=== PATIENT | female | born 1960 | race Caucasian/White ===

== ENCOUNTER 2016-07-07 18:43 | Emergency (ER) | payer BC ==
[~2016-07-07] VITALS: Ht 162.6 cm; Wt 65.5 kg
[~2016-07-07 18:43] MED LIST: AMBI5TAB PO; AUGM875T PO; IBUP-232 PO; PERC7.5T13 PO; SOMA350T PO; VALI10TA PO; VIST25CA PO
[2016-07-07 18:45] VITALS: BP 181/80; PULSE 83; RESP 14; TEMP 97.8; O2SAT 94
[2016-07-07] MEDS ORDERED: HYDR-3580 PO (19:31)
[2016-07-07] MEDS ORDERED: SOMA350T PO (19:31)
[2016-07-07] MEDS ORDERED: AMBI10TA PO (19:32)
[2016-07-07] MEDS ORDERED: ASPIRIN 325 MG TAB PO ONE (19:45)
[2016-07-07] MEDS ORDERED: NITROGLYCERIN 0.4 MG SL 25 TABS/BTL SL ONE (19:45)
[2016-07-07 19:53] VITALS: BP 160/85; PULSE 87; RESP 16; O2SAT 96
[2016-07-07 19:53] LABS: AUTOMATED NEUTROPHIL # 6.4 TH/MM3 (1.8-7.7); BASOPHIL # 0.1 TH/MM3 (0-0.2); BASOPHIL % 1.2 % (0.0-2.0); EOSINOPHIL # 0.3 TH/MM3 (0-0.4); EOSINOPHIL % 2.8 % (0.0-4.0); HEMO FLAGS DIFF FINAL; LYMPH % 35.3 % (9.0-44.0); LYMPHOCYTE # 4.1 TH/MM3 (1.0-4.8); MEAN CELL VOLUME 88.7 FL (80.0-100.0); MEAN CORPUSCULAR HEMOGLOBIN 29.4 PG (27.0-34.0); MEAN CORPUSCULAR HGB CONC 33.2 % (32.0-36.0); MONO % 5.6 % (0.0-8.0); NEUT % 55.1 % (16.0-70.0); PLATELET COUNT 337 TH/MM3 (150-450); RED CELL DISTRIBUTION WIDTH 12.8 % (11.6-17.2); WHITE BLOOD COUNT 11.6 TH/MM3 (4.0-11.0)
--- NOTE | 2016-07-07 19:56 | PD ---
HPI Chief Complaint: Abnormal Results Time Seen by Provider: 19:25 Travel History International Travel<30 days: No Contact w/Intl Traveler<30days: No Traveled to known affect area: No History of Present Illness HPI The patient is 55 years old. She arrives from her primary care provider's office, Dr. Gomez, after an EKG was performed which demonstrates Q waves in V1 through V3 and in lead III. she has had chest pain for about 1 week or so. It is primarily in the region of the left infracostal margin. Pleuritic chest pain is present. An occasional cough is reported, nonproductive and without fever. Quality is soreness. Overall the pain is mild at rest. She has no family history of coronary artery disease. She quit smoking tobacco 2 years prior. She's also had pain in the region of the left eye for about 2 days. The onset was gradual. She reports some pain with range of motion and when eye is shut. No visual change. No diplopia. Outside provider considered other process to be preseptal in nature. PFSH Past Medical History Diminished Hearing: No Musculoskeletal: Yes (back spasms) Tetanus Vaccination: Unknown ?: Not Menopausal: Yes Past Surgical History Gynecologic Surgery: Yes (ENDOMETRIAL ABLATION) Tonsillectomy: Yes Social History Alcohol Use: Yes (4 TIMES PER WEEK) Tobacco Use: No Substance Use: No Allergies-Medications (Allergen,Severity, Reaction): Coded Allergies: Egg Allergy (Verified Allergy, Mild, "ITCH", 07/07/16) Vancomycin (Verified Allergy, Mild, ITCHING, 07/07/16) Reported Meds & Prescriptions Reported Meds & Active Scripts Active Aspirin 81 Mg Tabdr 81 Mg PO DAILY 30 Days Reported Ambien (Zolpidem Tartrate) 10 Mg Tab 10 Mg PO HS PRN Soma (Carisoprodol) 350 Mg Tab 350 Mg PO QID PRN Hydrocodone-Acetaminophen 7.5-325 mg Tab 1 Tab PO Q6H PRN Review of Systems Except as stated in HPI: all other systems reviewed are Neg General / Constitutional: No: Fever Cardiovascular: Positive: Chest Pain or Discomfort, No: Palpitations, Tachycardia, Diaphoresis Respiratory: Positive: Pleuritic Pain Physical Exam Narrative GENERAL: 55-year-old female pleasant and speaking full sentences well-nourished well-developed no acute distress SKIN: Warm and dry. HEAD: Atraumatic. Normocephalic. EYES: Pupils equal and round. No scleral icterus. Minimal swelling around the left lower eyelid associated with tenderness and a trace amount of erythema. ROM intact. No diplopia. No proptosis. No chalazion or hordeolum. ENT: No nasal bleeding or discharge. Mucous membranes pink and moist. NECK: Trachea midline. No JVD. CARDIOVASCULAR: Regular rate and rhythm. No murmur appreciated. Minimal TTP L inferior costal margin. No overlying skin change. RESPIRATORY: No accessory muscle use. Clear to auscultation. Breath sounds equal bilaterally. GASTROINTESTINAL: Abdomen soft, non-tender, nondistended. Hepatic and splenic margins not palpable. MUSCULOSKELETAL: No obvious deformities. No clubbing. No cyanosis. No edema. NEUROLOGICAL: Awake and alert. No obvious cranial nerve deficits. Motor grossly within normal limits. Normal speech. PSYCHIATRIC: Appropriate mood and affect; insight and judgment normal. Data Data Last Documented VS Vital Signs Date Time Temp Pulse Resp B/P Pulse Ox O2 Delivery O2 Flow Rate FiO2 07/07/16 19:53 87 16 160/85 96 Room Air 07/07/16 18:45 97.8 VS noted Orders Electrocardiogram (07/07/16 18:53) Complete Blood Count With Diff (07/07/16 18:53) Basic Metabolic Panel (Bmp) (07/07/16 18:53) Ckmb (Isoenzyme) Profile (07/07/16 18:53) Troponin I (07/07/16 18:53) Chest, Single Ap (07/07/16 18:53) Ecg Monitoring (07/07/16 19:33) Iv Access Insert/Monitor (07/07/16 19:33) Oximetry (07/07/16 19:33) Aspirin (Aspirin) (07/07/16 19:45) Nitroglycerin Sl (Nitrostat Sl) (07/07/16 19:45) Ct Pulmonary Angiogram (07/07/16 19:33) Clindamycin Inj (Cleocin Inj) (07/07/16 20:00) CKMB (07/07/16 19:40) CKMB% (07/07/16 19:40) Iohexol 350 Inj (Omnipaque 350 Inj) (07/07/16 20:52) Labs Laboratory Tests Test 07/07/16 19:40 White Blood Count 11.6 TH/MM3 Red Blood Count 4.40 MIL/MM3 Hemoglobin 12.9 GM/DL Hematocrit 39.0 % Mean Corpuscular Volume 88.7 FL Mean Corpuscular Hemoglobin 29.4 PG Mean Corpuscular Hemoglobin 33.2 % Concent Red Cell Distribution Width 12.8 % Platelet Count 337 TH/MM3 Mean Platelet Volume 8.0 FL Neutrophils (%) (Auto) 55.1 % Lymphocytes (%) (Auto) 35.3 % Monocytes (%) (Auto) 5.6 % Eosinophils (%) (Auto) 2.8 % Basophils (%) (Auto) 1.2 % Neutrophils # (Auto) 6.4 TH/MM3 Lymphocytes # (Auto) 4.1 TH/MM3 Monocytes # (Auto) 0.6 TH/MM3 Eosinophils # (Auto) 0.3 TH/MM3 Basophils # (Auto) 0.1 TH/MM3 CBC Comment DIFF FINAL Differential Comment Sodium Level 138 MEQ/L Potassium Level 3.6 MEQ/L Chloride Level 102 MEQ/L Carbon Dioxide Level 26.2 MEQ/L Anion Gap 10 MEQ/L Blood Urea Nitrogen 21 MG/DL Creatinine 0.86 MG/DL Estimat Glomerular Filtration 69 ML/MIN Rate Random Glucose 142 MG/DL Calcium Level 8.7 MG/DL Total Creatine Kinase 101 U/L Creatine Kinase MB 1.0 NG/ML Troponin I LESS THAN 0.02 NG/ML MDM Medical Decision Making Medical Screen Exam Complete: Yes Emergency Medical Condition: Yes Medical Record Reviewed: Yes Differential Diagnosis NSTEMI, unstable angina, coronary vasospasm, PE, PTX, aortic dissection, pericarditis, myocarditis, endocarditis, PNA, esophageal disease, aneurysm, musculoskeletal etiologies, anxiety, cocaine/sympathomimetic abuse, post-septal cellulitis/infectious process, periorbital cellulitis Narrative Course EKG: sinus, rate 78, Q waves in V1-V3 and III, normal axis CBC & BMP Diagram 07/07/16 19:40 Troponin undetectable Last [address] Angiography 07/07/16 193 Signed Impressions: Service Date/Time: Thursday, July 07, 2016 20:49 - CONCLUSION: 1. No pulmonary embolus. 2. Several right pulmonary nodules. These could be followed with a noncontrast CT examination in 6-12 months. 3. Nonspecific 1 cm mass in the left lobe of the liver. Statistically, this likely represents a cyst or hemangioma. Sarbjit Aaron MD Chest X-Ray 07/07/16 6095 Signed Impressions: Service Date/Time: Thursday, July 07, 2016 19:57 - CONCLUSION: Cardiomegaly. Sarbjit Aaron MD Workup reassuring. We discussed repeat chest CT in 6-12 months. Patient has good follow-up and agrees to do so. We also discussed necessity of outpatient stress test to be performed within about 1 week or so. Return precautions discussed in detail. Clindamycin for the cellulitis of the left eye. Diagnosis Primary Impression: Chest pain Qualified Code: R07.9 - Chest pain, unspecified type Additional Impressions: Periorbital cellulitis of left eye Multiple lung nodules on CT Referrals: Leonidas Gomez MD 1 day Additional Instructions: You have a choice when it comes to health care, and we are glad that you chose [facility]. Hopefully, we have met your expectations on today's visit. You are welcome to return to [facility] at any time, as we are committed to meeting the health care needs of our community. Repeat chest CT in 6-12 months is recommended to ensure pulmonary nodules are not cancerous. Be sure to discuss this with Dr Gomez. Please be certain to schedule a cardiac stress test through Dr Gomez's office ideally within one week. Med/Other Pt SpecificInfo: Prescription(s) given Scripts Clindamycin 150 Mg [id number] Mg PO Q8HR 10 Days Ref 0 Prov:Brock Ho MD 07/07/16 Aspirin 81 Mg Tabdr81 Mg PO DAILY 30 Days Prov:Brock Ho MD 07/07/16 Disposition: 01 DISCHARGE HOME Condition: Stable Brock Ho MD Jul 07, 2016 19:56
[2016-07-07] MEDS ORDERED: CLINDAMYCIN INJ 600 MG in SODIUM CHLORIDE 0.9% INJ 100 ML IV ONE (20:00)
[2016-07-07 20:23] LABS: ANION GAP 10 MEQ/L (5-15); BICARBONATE 26.2 MEQ/L (21.0-32.0); BLOOD UREA NITROGEN 21 MG/DL (7-18); CHLORIDE 102 MEQ/L (98-107); CREATINE KINASE 101 U/L (26-192); GLOMERULAR FILTRATION RATE 69 ML/MIN (>89); POTASSIUM 3.6 MEQ/L (3.5-5.1); SODIUM (NA) 138 MEQ/L (136-145)
--- NOTE | 2016-07-07 20:24 | RADRPT ---
EXAM DATE/TIME: 07/07/2016 19:57 [facility] COMPARISON: No previous studies available for comparison. INDICATIONS : Chest pain. MEDICAL HISTORY : None. SURGICAL HISTORY : None. ENCOUNTER: Initial ACUITY: 2 weeks PAIN SCORE: 6/10 LOCATION: middle chest. FINDINGS: A single view of the chest demonstrates the lungs to be symmetrically aerated without evidence of mas s, infiltrate or effusion. The heart size is enlarged. Osseous structures are intact.CONCLUSION: Cardiomegaly. Sarbjit Aaron MD on July 07, 2016 at 20:23 Board Certified Radiologist. This report was verified electronically.
[2016-07-07] MEDS ORDERED: IOHEXOL 350 MG/ML 10 ML VIAL (for RAD DIAG) IV ONE (20:52)
--- NOTE | 2016-07-07 21:20 | RADRPT ---
EXAM DATE/TIME: 07/07/2016 20:49 [facility] COMPARISON: No previous studies available for comparison. INDICATIONS : Chest pain for 1 week. IV CONTRAST: 75 cc Omnipaque 350 (iohexol) IV RADIATION DOSE: 7.87 CTDIvol (mGy) MEDICAL HISTORY : None SURGICAL HISTORY : None. ENCOUNTER: Initial ACUITY: 1 week PAIN SCALE: 5/10 LOCATION: Bilateral chest TECHNIQUE: Volumetric scanning of the chest was performed using a pulmonary embolism protocol MIP images were re constructed. Using automated exposure control and adjustment of the mA and/or kV according to patien t size, radiation dose was kept as low as reasonably achievable to obtain optimal diagnostic quality images. FINDINGS: PULMONARY ARTERIES: No filling defects are seen in the pulmonary arteries through the segmental level. LUNGS: There is a 5 mm nodule seen in the mid right lung at the fissure. This could potentially be a lymph n ode in the fissure. There also several small less than 5 mm nodules in the right upper lung. PLEURAE: There is no pleural thickening or pleural effusion. MEDIASTINUM: There is good visualization of the great vessels of the middle mediastinum. No evidence of mediastin al or hilar adenopathy/mass. MUSCULOSKELETAL: Within normal limits for patient age. MISCELLANEOUS: The visualized upper abdominal organs demonstrate a 1 cm hypodensity in the lateral segment left lobe liver. CONCLUSION: 1. No pulmonary embolus. 2. Several right pulmonary nodules. These could be followed with a noncontrast CT examination in 6-12 months. 3. Nonspecific 1 cm mass in the left lobe of the liver. Statistically, this likely represents a cyst or hemangioma. Sarbjit Aaron MD on July 07, 2016 at 21:14 Board Certified Radiologist. This report was verified electronically.
[2016-07-07] MEDS ORDERED: ASPI1TAB69 PO (21:39)
[2016-07-07] MEDS ORDERED: CLIN1CAP5 PO ×2 (21:50→21:51)
--- NOTE | 2016-07-08 09:17 | EKG ---
Date Performed: 07/07/2016 Time Performed: 19:37:32 PTAGE: 55 years EKG: Sinus rhythm POSSIBLE RIGHT VENTRICULAR CONDUCTION DELAY ANTEROSEPTAL MYOCARDIAL INFARCTION ABNORMAL ECG NO PREVIOUS TRACING DOCTOR: Chris Roman Interpretating Date/Time 07/08/2016 09:14:48
== END 2016-07-07 22:28 | disposition home or self-care (01) ==
LOC: NEPE 18:43
DX: R07.9 Chest pain, unspecified (principal); L03.213 Periorbital cellulitis; R91.8 Other nonspecific abnormal finding of lung field; R94.31 Abnormal electrocardiogram [ECG] [EKG]
CPT/HCPCS: 71010; 71275; 80048; 82550; 82552; 84484; 85025; 93005; 96365; 99284; Q9967